=== PATIENT | male | born 1990 | race Caucasian/White ===

== ENCOUNTER 2018-09-01 18:34 | Emergency (ER) | payer BC, OTHER ==
[~2018-09-01] VITALS: Ht 180.3 cm; Wt 73.5 kg
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
[2018-09-01] MEDS ORDERED: TETANUS,DIPTH,PERTUSS P/F (BOOSTRIX) 0.5 ML VIAL IM ONE ×2 (19:12→19:15)
[2018-09-01 19:20] VITALS: BP 128/78
== END 2018-09-01 19:20 | disposition home or self-care (01) ==
LOC: ER FS 18:36
DX: S01.01XA Laceration without foreign body of scalp, initial encounter (principal); Z88.1 Allergy status to other antibiotic agents; W22.8XXA Striking against or struck by other objects, initial encounter
CPT/HCPCS: 90715

== ENCOUNTER 2019-06-14 07:43 | Emergency (ER) | payer BC, OTHER ==
[~2019-06-14] VITALS: Ht 175 cm; Wt 74.6 kg
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
--- NOTE | 2019-06-14 08:13 | Diagnostic Imaging Report ---
INDICATION: Right-sided chest pain PA chest and four views of the right ribs were obtained. Lungs are clear. There are no effusions or pneumothoraces. There are no displaced rib fractures. IMPRESSION: Negative chest and right ribs. Dictated by: Dictated on workstation # [id number]
[2019-06-14] MEDS ORDERED: MELO7.5T46 PO (08:21)
[2019-06-14 08:30] VITALS: BP 121/72
[2019-06-14] MEDS ORDERED: KETOROLAC 60 MG/2 ML VIAL IM ONE (08:30)
== END 2019-06-14 08:38 | disposition home or self-care (01) ==
LOC: EDUNIT# 07:43 → ER FS 07:44
DX: S20.211A Contusion of right front wall of thorax, initial encounter (principal); F17.210 Nicotine dependence, cigarettes, uncomplicated; Z88.1 Allergy status to other antibiotic agents; Y04.8XXA Assault by other bodily force, initial encounter; Y92.511 Restaurant or cafe as the place of occurrence of the external cause
CPT/HCPCS: 71101; 96372